=== PATIENT | male | born 1950 | race Caucasian/White ===

== ENCOUNTER 2022-09-14 08:52 | Day surgery (SDC) | payer OTHER ==
[2022-08-14 12:38] VITALS: BMI 31.5
[2022-09-14 09:08] VITALS: RESP 18
[2022-09-14] MEDS ORDERED: PROPOFOL 120 ML ONE (10:10)
[2022-09-14] MEDS ORDERED: LIDOCAINE HCL/PF 2% SDV 5ML VIAL ONE (10:10)
[2022-09-14 10:33] VITALS: TEMP 97
[2022-09-14 10:49] VITALS: BP 122/70; PULSE 50
== END 2022-09-14 11:13 | disposition home or self-care (01) ==
LOC: FASU-ENDO 08:52
PROVIDERS: ATTEND Internal Medicine Gastroenterology
PROC: 0DJD8ZZ Inspection of Lower Intestinal Tract, Via Natural or Artificial Opening Endoscopic (ICD-10-PCS; principal; 2022-09-14 10:09)
DX: Z12.11 Encounter for screening for malignant neoplasm of colon (principal); K57.30 Diverticulosis of large intestine without perforation or abscess without bleeding; K64.1 Second degree hemorrhoids; R19.5 Other fecal abnormalities